=== PATIENT | female | born 1975 | race Caucasian/White ===

== ENCOUNTER 2017-08-28 17:31 | Observation (INO) ==
--- NOTE | 2017-08-28 18:06 | ED ---
HPI General Chief Complaint: Chest Pain Stated Complaint: Chest Pain Time Seen by Provider: 08/28/17 17:50 History of Present Illness HPI narrative: The patient was seen and examined in the presence of the nurse. This patient complains of chest pressure. It is located in the center sternum. It started this morning. Duration 10 hours. No alleviating factors. No exacerbating factors. Symptoms are not pleuritic. There is no sharp stabbing pleurisy type pain. She has no history of cardiac disease but multiple family members have CAD. She has no prior testing. She did note she has been on multiple airline flights this week. She is not short of breath. No hemoptysis. Symptom severity is moderate. She also mentioned paresthesias in fingers and toes both sides of her body. She seems very anxious. Complete Quality Measures for STEMI Alert Patients Related Data Home Medications Medication Instructions Recorded Confirmed estradiol 0.5 mg PO DAILY 08/28/17 08/28/17 Allergies Allergy/AdvReac Type Severity Reaction Status Date / Time aspirin Allergy Severe hives Verified 08/28/17 17:48 latex Allergy Severe hives Verified 08/28/17 17:48 Review of Systems Except as stated in HPI: all other systems reviewed are negative PMFSH Social History Social History Substance History: No History of Abuse Second Hand Smoke Exposure: No Smoking Status: Never smoker How Often Do You Have a Drink Containing Alcohol: Monthly or less Recent Travel in [facility] within the Last 8 Weeks: Yes Recent Out of Country Travel within the Last 8 Weeks: No Immunization History Tetanus Immunization: Unsure Hx Influenza Vaccine This Season: No Exam Narrative Exam Narrative: GENERAL: Well-nourished, well-developed patient in no apparent distress. SKIN: Focused skin assessment reveals no rash and nodules. Skin is Warm and dry. HEAD: Atraumatic. Normocephalic. EYES: Pupils equal and round. No scleral icterus. No injection or drainage. ENT: No nasal bleeding or discharge. Mucous membranes pink and moist. NECK: Trachea midline. No JVD. CARDIOVASCULAR: Regular rate and rhythm. No murmur appreciated. RESPIRATORY: No accessory muscle use. Clear to auscultation. Breath sounds equal bilaterally. GASTROINTESTINAL: Abdomen soft, non-tender, nondistended. Hepatic and splenic margins not palpable. MUSCULOSKELETAL: No obvious deformities. No clubbing. No cyanosis. No edema. NEUROLOGICAL: Awake and alert. No obvious cranial nerve deficits. Motor grossly within normal limits. Normal speech. PSYCHIATRIC: Anxious mood and affect; insight and judgment normal. Course Initial Documented Vital Signs Temperature 98.2 F 08/28/17 17:42 Pulse Rate 68 08/28/17 17:42 Respiratory Rate 18 08/28/17 17:42 Blood Pressure 194/106 H 08/28/17 17:42 Pulse Oximetry 96 08/28/17 17:42 Last Documented Vital Signs Temperature 98.2 F 08/28/17 17:42 Pulse Rate 67 08/28/17 18:11 Respiratory Rate 18 08/28/17 18:11 Blood Pressure 151/104 H 08/28/17 18:11 Pulse Oximetry 98 08/28/17 18:11 Medical Decision Making MDM Narrative Medical decision making narrative: IV placed and labs sent Her EKG shows sinus rhythm with no ST elevation I reviewed her chest x-ray which is normal She reports allergy to aspirin causing hives so I have avoided that for now Troponin is normal. D-dimer 0.19, ruling out PE in this low suspicion patient Patient will be a 23 hour observation in the chest pain center in order to rule out cardiac cause of her symptoms. Call is been placed to hospitalist to discuss. Differential Diagnosis Differential Diagnosis: Differential diagnosis includes DC, angina, pericarditis , pleurisy, GERD, anxiety. Medical Records Medical records reviewed: Yes I reviewed the patient's medical records. Lab Data Result diagrams: 08/28/17 17:55 08/28/17 17:55 Lab Results 08/28/17 08/28/17 08/28/17 Range/Units 17:55 17:55 17:55 CBC w Diff Auto diff final WBC 6.1 (4.0-11.0) th/mm3 RBC 3.50 L (4.00-5.30) mil/mm3 Hgb 13.1 (11.6-15.3) gm/dL Hct 39.2 (35.0-46.0) % MCV 112.0 H (80.0-100.0) fL MCH 37.6 H (27.0-34.0) pg MCHC 33.5 (32.0-36.0) % RDW 16.7 (11.6-17.2) % Plt Count 262 (150-450) th/mm3 MPV 8.0 (7.0-11.0) fL Neut % (Auto) 68.3 (16.0-70.0) % Lymph % (Auto) 27.8 (9.0-44.0) % [place] % (Auto) 2.4 (0.0-8.0) % Eos % (Auto) 1.0 (0.0-4.0) % Baso % (Auto) 0.5 (0.0-2.0) % Neut # (Auto) 4.2 (1.8-7.7) th/mm3 Lymph # (Auto) 1.7 (1.0-4.8) th/mm3 [place] # (Auto) 0.1 (0.0-0.9) th/mm3 Eos # (Auto) 0.1 (0.0-0.4) th/mm3 Baso # (Auto) 0.0 (0.0-0.2) th/mm3 WBC Differential . Differential Comment . PT 10.6 (9.8-11.6) sec INR 1.0 Ratio APTT 24.5 (24.3-30.1) sec D-Dimer Quant (PE/DVT) Less than 0.19 (0.00-0.50) mg/L FEU Sodium 138 (136-145) meq/L Potassium 3.5 (3.5-5.1) meq/L Chloride 103 (98-107) meq/L Carbon Dioxide 30.5 (21.0-32.0) meq/L Anion Gap 5 (5-15) meq/L BUN 9 (7-18) mg/dL Creatinine 0.86 (0.50-1.00) mg/dL Estimated GFR 72 L (>89) mL/min Random Glucose 98 (74-106) mg/dL Calcium 8.8 (8.5-10.1) mg/dL Troponin I Less than 0.02 L (0.02-0.05) ng/mL Imaging Data Radiologist's impression: Chest X-Ray 08/28/17 18:01 CONCLUSION: The lungs are clear. Discharge Plan Discharge Disposition Patient Disposition: 30 Still Patient Discharge Condition Condition: Stable Discharge Details Diagnosis: Atypical chest pain Physicians Team ED Provider: Rip Upton Primary Care Provider: Primary Care DbiAdalgisa Rxs /Orders / Referrals /Forms Prescriptions: No Action estradiol 0.5 mg Tablet 0.5 mg PO DAILY RF: 0 Discharge Instructions Patient Printed Instructions: Chest Pain (ED) Discharge Interventions Interventions: Vital Signs Last Done: 08/28/17 17:51 Status ED Status: With Doctor
[2017-08-28 18:11] LABS: Baso % (Auto) 0.5 % (0.0-2.0); Eos # (Auto) 0.1 th/mm3 (0.0-0.4); Hematocrit 39.2 % (35.0-46.0); Hemoglobin 13.1 gm/dL (11.6-15.3); Lymph # (Auto) 1.7 th/mm3 (1.0-4.8); Lymph % (Auto) 27.8 % (9.0-44.0); Mean Corpuscular HGB Conc 33.5 % (32.0-36.0); Mean Corpuscular Hemoglobin 37.6 pg (27.0-34.0); Mono # (Auto) 0.1 th/mm3 (0.0-0.9); Mono % (Auto) 2.4 % (0.0-8.0); Neut # (Auto) 4.2 th/mm3 (1.8-7.7); Neut % (Auto) 68.3 % (16.0-70.0); Platelet Count 262 th/mm3 (150-450); Red Cell Distribution Width 16.7 % (11.6-17.2); White Blood Count 6.1 th/mm3 (4.0-11.0)
[2017-08-28 18:18] LABS: Chloride 103 meq/L (98-107); Potassium 3.5 meq/L (3.5-5.1); Sodium 138 meq/L (136-145)
[2017-08-28 18:21] LABS: Calcium 8.8 mg/dL (8.5-10.1)
[2017-08-28 18:22] LABS: Anion Gap 5 meq/L (5-15); Blood Urea Nitrogen 9 mg/dL (7-18); Carbon Dioxide 30.5 meq/L (21.0-32.0); Glucose,Random 98 mg/dL (74-106)
[2017-08-28 18:25] LABS: Glomerular Filtration Rate 72 mL/min (>89)
[2017-08-28 18:27] LABS: Activated Partial Thrombo Time 24.5 sec (24.3-30.1); Prothrombin Time 10.6 sec (9.8-11.6)
--- NOTE | 2017-08-28 18:28 | XR ---
EXAM DATE: 08/28/2017 6:14 PM EDT AGE/SEX: 42 years / Female INDICATIONS: Chest pain starting today CLINICAL DATA: This is the patient's initial encounter. Patient reports that signs and symptoms have been present for 1 day and indicates a pain score of 7/10. MEDICAL/SURGICAL HISTORY: None. None. COMPARISON: No prior exams available for comparison. FINDINGS: A single AP view of the chest demonstrates the lungs to be symmetrically aerated without evidence of mass, infiltrate or effusion. The cardiomediastinal contours are unremarkable. Osseous structures a re intact. CONCLUSION: The lungs are clear. Electronically signed by: Santiago Smith MD 08/28/2017 6:27 PM EDT
[2017-08-28] MEDS ORDERED: Acetaminophen 325 MG Tablet PO PRN (18:45)
[2017-08-28] MEDS ORDERED: Temazepam 15 MG Capsule PO PRN (18:45)
[2017-08-28] MEDS ORDERED: Morphine Inj 4 MG/ML Vial IV.PUSH PRN (18:51)
[2017-08-28] MEDS: Heparin - SQ 10,000 UNITS/ML Vial SQ SCH (19:48)
[2017-08-28 20:55] LABS: Bilirubin,Urine Negative (Negative); Clarity,Urine Clear (Clear); Color,Urine Yellow (Yellw/Straw); Glucose,Urine (UA) Negative (Negative); Leukocyte Esterase,Urine Negative (Negative); Nitrite,Urine Positive (Negative)
[2017-08-28 21:00] LABS: Squamous Epithelial Cell,Urine 0-5 /hpf (0-5)
[2017-08-28 21:01] LABS: Bacteria,Urine Many /hpf
--- NOTE | 2017-08-29 08:01 | P.HP ---
History of Present Illness Primary Care Physician: PROVIDER NON STAFF Chief Complaint: chest pain History of Present Illness: 42-year-old female with no chronic medical illnesses who presented to the hospital because of intermittent chest pain. Patient states that she has been experiencing chest discomfort over the last couple months. She has been under a lot of stress over the last year because of her mom suddenly passing away from brain aneurysm. She has been traveling more frequently by airplane. She states that the discomfort in her chest is a heaviness type sensation in the middle part of her chest which she describes as an elephant sitting on it. She has been experiencing intermittent paresthesia in the bilateral upper and lower extremities. She states that her chest discomfort usually last for about an hour and then goes away. However, when she woke up yesterday morning at approximately 630 she had the chest discomfort, states that it was a very big elephant sitting on her chest and she developed paresthesia in her left upper extremity. She states that she had shortness of breath, nausea, diaphoresis. The pain did not resolve as it usually does so she came to emergency department for evaluation. Patient was given morphine, nitroglycerin emergency department with complete resolution of her pain. Patient did have workup performed and was unremarkable for any acute event. Patient was ruled out for any pulmonary emboli. Patient has not had any previous cardiac workup. ER physician recommended patient be observed in chest pain center for further evaluation and management. At the time evaluating patient this morning she states that she had another episode of chest discomfort last night which lasted for approximately an hour without any medication. - Diagnosis (1) Atypical chest pain (2) History of recent fall (3) UTI (urinary tract infection), uncomplicated Review of Systems All other systems reviewed negative except as stated in HPI Constitutional: Reports excessive sweating Cardiovascular: Reports chest pain, Reports shortness of breath Gastrointestinal: Reports nausea Neurologic: Reports tingling/numbness/burning sensations (In bilateral upper and lower extremities) PMF - History History Provided By: Patient - Medical History Medical History: Medical History (Last Updated 08/29/17 @ 07:57 by BRIJESH Arnold) H/O: hysterectomy History of kidney stones Surgical menopause - Family History Family History: Family History (Last Updated 08/29/17 @ 07:57 by BRIJESH Arnold) Mother Family history of heart disease Family history of brain aneurysm Father Family history of heart disease - Tobacco History Second Hand Smoke Exposure: No Smoking Status: Never smoker - Alcohol History How Often Do You Have a Drink Containing Alcohol: 2 to 4 times a month - Substance Use History Substance History: No History of Abuse - Travel History Recent Travel in the [place] Within the Last 8 Weeks: Yes Recent Travel Out of the Country Within the Last 8 Weeks: No - Immunization History Tetanus Immunization: >5 Years Hx Influenza Vaccine This Season: No Medications and Allergies Active Medications: Active Medications Acetaminophen (Tylenol) 650 mg PO Q4H PRN PRN Reason: Temp > 100.4 Last Admin: 08/28/17 19:47 Dose: 650 mg Al Hydroxide/Mg Hydroxide (Milk Of Raman Lirancho) 30 ml PO Q12H PRN PRN Reason: Mild Constipation Estradiol (Estrace) 0.5 mg PO DAILY [facility] Heparin Sodium (Porcine) (Heparin Inj) 5,000 units SQ Q12H [facility] Last Admin: 08/28/17 19:48 Dose: 5,000 units Levofloxacin (Levaquin) 250 mg PO DAILY [facility] Stop: 08/31/17 09:01 Miscellaneous (Pill Splitter) 1 each OTHER UNSCH PRN PRN Reason: SEE LABEL COMMENTS Morphine Sulfate (Morphine Inj) 2 mg IV.PUSH Q4H PRN PRN Reason: CHEST PAIN Last Admin: 08/28/17 19:43 Dose: 2 mg Nitroglycerin (Nitrostat Sl) 0.4 mg SL Q5M PRN PRN Reason: CHEST PAIN Last Admin: 08/28/17 20:03 Dose: 0.4 mg Ondansetron HCl (Zofran Inj) 4 mg IV.PUSH Q6H PRN PRN Reason: NAUSEA OR VOMITING Last Admin: 08/28/17 19:43 Dose: 4 mg Sodium Chloride (Ns Flush) 2 ml IV.FLUSH UNSCH PRN PRN Reason: FLUSH AFTER USING IV ACCESS Temazepam (Restoril) 15 mg PO HS PRN PRN Reason: INSOMNIA Allergies Allergy/AdvReac Type Severity Reaction Status Date / Time aspirin Allergy Severe hives Verified 08/28/17 17:48 latex Allergy Severe hives Verified 08/28/17 17:48 Home Medications Medication Instructions Recorded Confirmed Type estradiol 0.5 mg PO DAILY 08/28/17 08/29/17 History Exam Vital signs: Vital Signs 08/28/17 17:42 08/28/17 17:51 08/28/17 18:10 Temperature 98.2 F Pulse Rate 68 88 69 Respiratory Rate 18 18 Blood Pressure 194/106 H 167/98 H Pulse Oximetry 96 97 98 08/28/17 18:11 08/28/17 18:50 08/28/17 19:24 Temperature Pulse Rate 67 68 82 Respiratory Rate 18 18 20 Blood Pressure 151/104 H 131/83 153/82 H Pulse Oximetry 98 08/28/17 19:42 08/28/17 20:00 08/28/17 20:05 Temperature Pulse Rate 71 Respiratory Rate 18 18 Blood Pressure 124/82 114/73 Pulse Oximetry 98 08/28/17 20:37 08/28/17 20:38 08/28/17 21:06 Temperature 97.4 F L Pulse Rate 65 Respiratory Rate 16 Blood Pressure 136/83 Pulse Oximetry 98 98 98 08/29/17 00:00 08/29/17 04:00 08/29/17 07:22 Temperature 97.2 F L 97.0 F L 97.2 F L Pulse Rate 68 68 56 L Respiratory Rate 16 16 20 Blood Pressure 144/87 H 138/84 120/84 Pulse Oximetry 98 98 98 08/29/17 07:39 Temperature Pulse Rate Respiratory Rate Blood Pressure Pulse Oximetry 98 Intake & Output 08/28/17 08/29/17 08/29/17 18:59 06:59 18:59 Intake Total 200 / 200 Balance 200 / 200 Weight 60 kg 60.8 kg Intake: Oral 200 / 200 Other: # Voids 2 Weight On Admission 60.7 kg Narrative: GENERAL: Well-developed, well-nourished, in no acute distress. alert and orientated HEENT: Head is normocephalic without any lesions or masses noted. Facial features are symmetric. Eyes: Pupils equal round reactive to light. Extraocular muscles are intact. Conjunctivae were clear. Oropharyngeal: Pharynx without any erythema edema. Tongue is midline without deviation. Buccal mucosa is moist without any masses or lesions NECK: Supple without any masses. Trachea midline no deviation. No JVD, no bruits are appreciated CARDIAC: Regular rhythm, regular rate. S1/S2 are heard. No murmurs gallops or rubs. LUNGS: Clear to auscultation bilaterally. No wheeze, rhonchi or rales. No use of accessory muscles on inspiration or expiration. ABDOMEN: Soft, nontender. Nondistended. Bowel sounds heard in all 4 quadrants. No organomegaly or masses. Negative rebound, negative guarding EXTREMITIES: No edema, pulses are equal bilaterally. No cyanosis or clubbing NEUROLOGY: Mood and affect appear appropriate. Cranial nerves II through XII grossly intact. Muscle strength 5/5 in upper and lower extremities bilaterally. Deep tendon reflexes are 2+ in upper and lower extremities bilaterally. Results - Labs CBC & Chem 7: 08/28/17 17:55 08/28/17 17:55 Labs: Laboratory Results - last 24 hr 08/28/17 08/28/17 08/28/17 17:55 17:55 17:55 CBC w Diff Auto diff final WBC 6.1 RBC 3.50 L Hgb 13.1 Hct 39.2 MCV 112.0 H MCH 37.6 H MCHC 33.5 RDW 16.7 Plt Count 262 MPV 8.0 Neut % (Auto) 68.3 Lymph % (Auto) 27.8 [place] % (Auto) 2.4 Eos % (Auto) 1.0 Baso % (Auto) 0.5 Neut # (Auto) 4.2 Lymph # (Auto) 1.7 [place] # (Auto) 0.1 Eos # (Auto) 0.1 Baso # (Auto) 0.0 WBC Differential . Differential Comment . PT 10.6 INR 1.0 APTT 24.5 D-Dimer Quant (PE/DVT) Less than 0.19 Sodium 138 Potassium 3.5 Chloride 103 Carbon Dioxide 30.5 Anion Gap 5 BUN 9 Creatinine 0.86 Estimated GFR 72 L Random Glucose 98 Calcium 8.8 Troponin I Less than 0.02 L Urine Color Urine Clarity Urine pH Ur Specific [place] Urine Protein Urine Glucose (UA) Urine Ketones Urine Occult Blood Urine Nitrate Urine Bilirubin Urine Urobilinogen Ur Leukocyte Esterase Urine WBC Ur Squamous Epith Cells Urine Bacteria Micro UA Comment Urine Culture Comments 08/28/17 08/29/17 20:52 00:10 CBC w Diff WBC RBC Hgb Hct MCV MCH MCHC RDW Plt Count MPV Neut % (Auto) Lymph % (Auto) [place] % (Auto) Eos % (Auto) Baso % (Auto) Neut # (Auto) Lymph # (Auto) [place] # (Auto) Eos # (Auto) Baso # (Auto) WBC Differential Differential Comment PT INR APTT D-Dimer Quant (PE/DVT) Sodium Potassium Chloride Carbon Dioxide Anion Gap BUN Creatinine Estimated GFR Random Glucose Calcium Troponin I Less than 0.02 L Urine Color Yellow Urine Clarity Clear Urine pH 6.0 Ur Specific [place] 1.020 Urine Protein Negative Urine Glucose (UA) Negative Urine Ketones 15 H Urine Occult Blood Negative Urine Nitrate Positive H Urine Bilirubin Negative Urine Urobilinogen 1.0 Ur Leukocyte Esterase Negative Urine WBC 5-8 H Ur Squamous Epith Cells 0-5 Urine Bacteria Many H Micro UA Comment Culture indicated Urine Culture Comments Culture indicated - Imaging Impressions Chest X-Ray 08/28/17 18:01 CONCLUSION: The lungs are clear. Caprini VTE Risk Assessment Caprini VTE Risk Assessment: No/Low Risk (score <= 1) Caprini Risk Assessment Model: Point Value = 1 Point Value = 2 Point Value = 3 Point Value = 5 Age 41-60 Minor surgery BMI > 25 kg/m2 Swollen legs Varicose veins or History of unexplained or recurrent spontaneous Oral contraceptives or hormone replacement Sepsis (< 1 month) Serious lung disease, including pneumonia (< 1 month) Abnormal pulmonary function Acute myocardial infarction Congestive heart failure (< 1 month) History of inflammatory bowel disease Medical patient at bed rest Age 61-74 Arthroscopic surgery Major open surgery (> 45 min) Laparoscopic surgery (> 45 min) Malignancy Confined to bed (> 72 hours) Immobilizing plaster cast Central venous access Age >= 75 History of VTE Family history of VTE Factor V Leiden Prothrombin [id number] Lupus anticoagulant Anticardiolipin antibodies Elevated serum homocysteine Heparin-induced thrombocytopenia Other congenital or acquired thrombophilia Stroke (< 1 month) Elective arthroplasty Hip, pelvis, or leg fracture Acute spinal cord injury (< 1 month) Prophylaxis Regimen: Total Risk Factor Score Risk Level Prophylaxis Regimen 0-1 Low Early ambulation 2 Moderate Order ONE of the following: *Sequential Compression Device (SCD) *Heparin 5000 units SQ BID 3-4 Higher Order ONE of the following medications: *Heparin 5000 units SQ TID *Enoxaparin/Lovenox 40 mg SQ daily (WT < 150 kg, CrCl > 30 mL/min) *Enoxaparin/Lovenox 30 mg SQ daily (WT < 150 kg, CrCl > 10-29 mL/min) *Enoxaparin/Lovenox 30 mg SQ BID (WT < 150 kg, CrCl > 30 mL/min) AND/OR *Sequential Compression Device (SCD) 5 or more Highest Order ONE of the following medications: *Heparin 5000 units SQ TID (Preferred with Epidurals) *Enoxaparin/Lovenox 40 mg SQ daily (WT < 150 kg, CrCl > 30 mL/min) *Enoxaparin/Lovenox 30 mg SQ daily (WT < 150 kg, CrCl > 10-29 mL/min) *Enoxaparin/Lovenox 30 mg SQ BID (WT < 150 kg, CrCl > 30 mL/min) AND *Sequential Compression Device (SCD) Assessment and Plan - Assessment (1) Atypical chest pain Code(s): R07.89 - Other chest pain Status: Acute Plan: -Patient with increased risk factors to include family history of heart disease -Patient has been ruled out for acute coronary event with serial cardiac enzymes that are negative -Serial EKGs show sinus rhythm without any changes -Exercise stress test was performed and normal without any signs of ischemia -Patient continued on nitroglycerin, morphine as needed for pain control -Unable start aspirin secondary to allergy -Reviewed telemetry without any acute abnormalities -Discussed with patient other possible etiologies to include muscle skeletal, pulmonary, GI, anxiety. Notified her that she should follow-up with her prior medical doctor to have evaluation for other etiologies. (2) History of recent fall Code(s): Z91.81 - History of falling Status: Acute Plan: -Patient with a recent fall and closed head injury, associated symptoms of paresthesia -CT of the brain did not indicate any acute abnormality -Obtaining B12, folate (3) UTI (urinary tract infection), uncomplicated Code(s): N39.0 - Urinary tract infection, site not specified Status: Acute Plan: -ER workup indicated uncomplicated urinary tract infection -Patient is asymptomatic -Start Levaquin 250 mg daily for 3 days - Plan DVT prevention -Low risk, early ambulation Discharge Planning: Discharge home in stable condition Activity: Ad raine. Diet: Regular diet Medication per medication reconciliation Follow-up with primary medical doctor in 1 week
[2017-08-29] MEDS ORDERED: Estradiol 1 MG Tablet PO SCH (09:00)
[2017-08-29] MEDS ORDERED: levoFLOXacin 250 MG Tablet PO SCH (09:00)
--- NOTE | 2017-08-29 09:30 | CT ---
EXAM DATE: 08/29/2017 9:24 AM EDT AGE/SEX: 42 years / Female INDICATIONS: Patient complains of bilateral hand and feet numbness/tingling. Stated it started after arriving home on a flight 2 days ago with ankle swelling. Also hit posterior head 1 month ago. CLINICAL DATA: This is the patient's initial encounter. Patient reports that signs and symptoms have been present for 2 days and indicates a pain score of 0/10. MEDICAL/SURGICAL HISTORY: Vertigo. Hysterectomy. RADIATION DOSE: 47.10 CTDI (mGy) COMPARISON: No prior exams available for comparison. TECHNIQUE: CT of the head without contrast. Using automated exposure control and adjustment of the mA and/or kV according to patient size, radiation dose was kept as low as reasonably achievable to ob tain optimal diagnostic quality images. DICOM format image data is available electronically for revi ew and comparison. FINDINGS: Cerebrum: The ventricles are normal for age. No evidence of midline shift, mass lesion, hemorrhage or acute infarction. No extraaxial fluid collections are seen. Posterior Fossa: The cerebellum and brainstem are intact. The 4th ventricle is midline. The cerebe llopontine angle is unremarkable. Extracranial: The visualized portion of the orbits is intact. Skull: The calvaria is intact. No evidence of skull fracture. CONCLUSION: 1. No acute intracranial abnormality . Electronically signed by: Nash Franklin MD 08/29/2017 9:28 AM EDT
--- NOTE | 2017-08-29 10:35 | TR ---
Date Performed: 08/29/2017 Time Performed: 10:06:40 DOCTOR: Tang Morton DRUG LIST: CLINICAL HISTORY: CHEST PAIN REASON FOR TEST: REASON FOR ENDING: Completed Protocol OBSERVATION: Arrhythmia: None Chest Pain: None CONCLUSION: Patient tolerated FAHAD protocol with Total Exercise Time=8:05 Maximum XF=690 % Max HR Achieved=93.0% Maximum QR=216/76, Testing stopped secondary to goals acheived. Patient reached tar get HR. During peak exercise, patient was asymptomatic, upsloping ST segments. HR and BP appropriate response to exercise, Recovery period, HR and BP returned to baseline COMMENTS: Conclusion: Normal treadmill exercise. No evidence of ischemia.
[2017-08-29] MEDS: Heparin - SQ 10,000 UNITS/ML Vial SQ SCH (10:42)
[2017-08-29 12:19] LABS: Vitamin B12 79 pg/mL (193-986)
--- NOTE | 2017-08-29 14:47 | ECG ---
Date Performed: 08/28/2017 Time Performed: 23:38:12 PTAGE: 42 years EKG: Sinus rhythm POSSIBLE LEFT ATRIAL ENLARGEMENT POSSIBLE RIGHT VENTRICULAR CONDUCTION DELAY POSSIBLE LEFT VENTRICUL AR HYPERTROPHY ABNORMAL ECG PREVIOUS TRACING : 08/28/2017 19.59 Since previous tracing, no significant change noted DOCTOR: Tang Morton Interpretating Date/Time 08/31/2017 07:54:53
--- NOTE | 2017-08-29 14:48 | ECG ---
Date Performed: 08/28/2017 Time Performed: 19:59:17 PTAGE: 42 years EKG: SINUS BRADYCARDIA POSSIBLE LEFT ATRIAL ENLARGEMENT BORDERLINE ECG PREVIOUS TRACING : 08/28/2017 17.46 Since previous tracing, no significant change noted DOCTOR: Tang Morton Interpretating Date/Time 08/29/2017 14:47:25
--- NOTE | 2017-08-29 14:48 | ECG ---
Date Performed: 08/28/2017 Time Performed: 17:46:19 PTAGE: 42 years EKG: Sinus rhythm WITH SHORT [place] INTERVAL POSSIBLE LEFT ATRIAL ENLARGEMENT POSSIBLE RIGHT VENTRICULAR CONDUCTION DELAY BORDERLINE ECG NO PREVIOUS TRACING DOCTOR: Tang Morton Interpretating Date/Time 08/29/2017 14:47:36
--- NOTE | 2017-08-30 14:47 | ECG ---
Date Performed: 08/29/2017 Time Performed: 07:22:06 PTAGE: 42 years EKG: SINUS BRADYCARDIA SLIGHT ST CHANGES OF EARLY REPOLARIZATION OTHERWISE WITHIN NORMAL LIMITS FOR AGE BORDERLINE ECG Compared to PREVIOUS TRACING , axis more leftward and T-wave changes seen inferiorly have resolved. P REVIOUS TRACIN08/28/2017 23.38 DOCTOR: Tang Morton Interpretating Date/Time 08/30/2017 14:46:10
== END 2017-08-29 11:24 | disposition home or self-care (01) ==
LOC: PH3 17:31 → PHED 17:31 → PHEDA 17:31 → PH3 20:10
PROVIDERS: ADMIT Family Medicine; ATTEND Family Medicine
DX: R06.02 Shortness of breath; R07.89 Other chest pain; N39.0 Urinary tract infection, site not specified; R61 Generalized hyperhidrosis; R20.2 Paresthesia of skin